=== PATIENT | male | born 1970 | race Hispanic/Latino ===

== ENCOUNTER 2020-10-05 01:07 | Emergency (ER) | payer SELFPAY ==
[2020-10-05] MEDS ORDERED: ACETAMINOPHEN 325 MG TABLET ONE (01:56)
--- NOTE | 2020-10-05 02:13 | EDPHYS ---
Physician Documentation [facility] Name: Chandana Casillas Age: 49 yrs Sex: Male : 1970 Arrival Date: 10/05/2020 Time: 01:14 Bed 18 Private MD: ED Physician Guanakito Blair HPI: 10/05 02:14 This 49 yrs old Male presents to ER via Ambulatory with complaints of ps1 Breathing Difficulty. 02:14 patient is presenting with symptoms typical for COVID 19. ESTRADA, cough, myalgias, ps1 shortness of breath. Onset was 5 days ago. No known COVID exposure but prevalent throughout the community. No hypoxia on examination. . Historical: - Allergies: :34 No Known Allergies; ea - Home Meds: :34 None [Active]; ea - PMHx: :34 None; ea - PSHx: :34 cyst removal from chest; ea - Immunization history:: Adult Immunizations up to date. - Social history:: Smoking status: Patient denies any tobacco usage or history of. ROS: 02:14 Eyes: Negative for injury, pain, redness, and discharge, Cardiovascular: Negative for ps1 chest pain, palpitations, and edema, Abdomen/GI: Negative for abdominal pain, nausea, vomiting, diarrhea, and constipation, MS/Extremity: Negative for injury and deformity, Skin: Negative for injury, rash, and discoloration, Neuro: Negative for headache, weakness, numbness, tingling, and seizure. 02:14 Constitutional: Positive for body aches, chills, fatigue, fever, malaise, poor PO intake. 02:14 Cardiovascular: 02:14 Respiratory: Positive for cough, shortness of breath. Exam: 02:14 Constitutional: This is a well developed, well nourished patient who is awake, alert, ps1 and in no acute distress. Head/Face: Normocephalic, atraumatic. Chest/axilla: Normal chest wall appearance and motion. Nontender with no deformity. No lesions are appreciated. Cardiovascular: Regular rate and rhythm. No gallops, murmurs, or rubs. Normal PMI, no JVD. No pulse deficits. Respiratory: Lungs have equal breath sounds bilaterally, clear to auscultation and percussion. No rales, rhonchi or wheezes noted. No increased work of breathing, no retractions or nasal flaring. Abdomen/GI: Soft, non-tender, with normal bowel sounds. No distension or tympany. No guarding or rebound. No evidence of tenderness throughout. Skin: Warm, dry with normal turgor. Normal color with no rashes, no lesions, and no evidence of cellulitis. MS/ Extremity: Pulses equal, no cyanosis. Neurovascular intact. Full, normal range of motion. Neuro: Awake and alert, GCS 15, oriented to person, place, time, and situation. Cranial nerves II-XII grossly intact. Sensory grossly intact. Vital Signs: 01:29 BP 124 / 88; Pulse 123; Resp 20; Temp 101.6; Pulse Ox 99% on R/A; Weight 78.47 kg; ea Height 5 ft. 7 in. (170.18 cm); 02:00 BP 132 / 89; Pulse 105; Resp 18; Pulse Ox 96% ; sf 02:19 Temp 101.8(O); sf 02:30 BP 123 / 79; Pulse 98; Resp 18; Pulse Ox 96% ; sf 01:29 Body Mass Index 27.10 (78.47 kg, 170.18 cm) ea MDM: 02:12 Patient medically screened. ps1 02:16 Data reviewed: vital signs, nurses notes. Counseling: I had a detailed discussion with ps1 the patient and/or guardian regarding: the historical points, exam findings, and any diagnostic results supporting the discharge/admit diagnosis, to return to the emergency department if symptoms worsen or persist or if there are any questions or concerns that arise at home. Administered Medications: 01:41 Drug: Tylenol 650 mg Route: PO; sf 02:20 Follow up: Response: No adverse reaction; Temperature is increased sf 02:26 Drug: Motrin 800 mg Route: PO; sf 02:38 Follow up: Response: Medication administered at discharge. sf Disposition: 10/05/20 02:12 Discharged to Home. Impression: Acute upper respiratory infection, unspecified. - Condition is Stable. - Discharge Instructions: Upper Respiratory Infection, Adult, COVID-19. - Prescriptions for Albuterol Sulfate 90 mcg/actuation - inhale 1-2 puff by INHALATION route every 4-6 hours; 1 Inhaler. - Medication Reconciliation Form, Thank You Letter, Antibiotic Education, Prescription Opioid Use form. - Work release form (02/27/21 03:36). ea - Follow up: Emergency Department; When: As needed; Reason: Trouble breathing, Worsening of condition. - Problem is new. - Symptoms are unchanged. Signatures: Dispatcher [employer] EDHI Lea Franco RN RN Guanakito Kerr MD MD ps1 Ti Mock RN RN sf Corrections: (The following items were deleted from the chart) 02:22 02:03 CORONAVIRUS ordered. [facility] 02:39 02:12 10/05/2020 02:12 Discharged to Home. Impression: Acute upper respiratory sf infection, unspecified. Condition is Stable. Forms are Medication Reconciliation Form, Thank You Letter, Antibiotic Education, Prescription Opioid Use. Follow up: Emergency Department; When: As needed; Reason: Trouble breathing, Worsening of condition. Problem is new. Symptoms are unchanged. ps1
--- NOTE | 2020-10-05 02:13 | ER ---
Nurse's Notes [facility] Name: Chandana Casillas Age: 49 yrs Sex: Male : 1970 Arrival Date: 10/05/2020 Time: 01:14 Bed 18 Private MD: Diagnosis: Acute upper respiratory infection, unspecified Presentation: 10/05 01:29 Chief complaint: Patient states: Reports he started having fever, cough, body aches ea since last Wednesday, reported tonight he was having a difficult time sleeping and his fever did not go away. Coronavirus screen: At this time, the client does not indicate any symptoms associated with coronavirus-19. Ebola Screen: No symptoms or risks identified at this time. Initial Sepsis Screen: Does the patient meet any 2 criteria? HR > 90 bpm. Does the patient have a suspected source of infection? No. Patient's initial sepsis screen is negative. Risk Assessment: Do you want to hurt yourself or someone else? Patient reports no desire to harm self or others. Onset of symptoms was October 05, 2020. :29 Method Of Arrival: Ambulatory ea :29 Acuity: ARACELIS 3 ea Triage Assessment: :34 General: Appears in no apparent distress. Behavior is calm, cooperative, appropriate ea for age. Pain: Complains of pain in body aches. Respiratory: Reports cough that is Onset: The symptoms/episode began/occurred one week ago, the patient reports symptoms have resolved. Historical: - Allergies: 01:34 No Known Allergies; ea - Home Meds: 01:34 None [Active]; ea - PMHx: :34 None; ea - PSHx: :34 cyst removal from chest; ea - Immunization history:: Adult Immunizations up to date. - Social history:: Smoking status: Patient denies any tobacco usage or history of. Screenin:33 Abuse screen: Denies threats or abuse. Nutritional screening: No deficits noted. ea Tuberculosis screening: No symptoms or risk factors identified. Fall Risk None identified. Assessment: :34 Reassessment: See triage assessment. ea 01:45 General: Appears in no apparent distress. comfortable, Behavior is calm, cooperative, sf Reports feeling ill for 2-3 days, also having body aches. Pain: Denies pain. Neuro: No deficits noted. Level of Consciousness is awake, alert, Oriented to person, place, time, situation, Appropriate for age. Cardiovascular: Denies chest pain, shortness of breath, Patient's skin is warm and dry. Rhythm is sinus tachycardia. Respiratory: Reports cough that is Airway is patent Respiratory effort is even, unlabored, Respiratory pattern is regular, symmetrical, Breath sounds are clear bilaterally. GI: No signs and/or symptoms were reported involving the gastrointestinal system. : No signs and/or symptoms were reported regarding the genitourinary system. Derm: Skin temperature is hot. 03:20 Reassessment: notified pt COVID result, pt informed of result by primary sg nurse and instructed on quarantine guidelines per the CDC. Vital Signs: 01:29 BP 124 / 88; Pulse 123; Resp 20; Temp 101.6; Pulse Ox 99% on R/A; Weight 78.47 kg; ea Height 5 ft. 7 in. (170.18 cm); 02:00 BP 132 / 89; Pulse 105; Resp 18; Pulse Ox 96% ; sf 02:19 Temp 101.8(O); sf 02:30 BP 123 / 79; Pulse 98; Resp 18; Pulse Ox 96% ; sf 01:29 Body Mass Index 27.10 (78.47 kg, 170.18 cm) ea ED Course: 01:14 Patient arrived in ED. cl3 01:16 Guanakito Blair MD is Attending Physician. ps1 01:32 Triage completed. ea 01:33 Patient has correct armband on for positive identification. Bed in low position. Call ea light in reach. Side rails up X2. 01:34 Arm band placed on right wrist. Patient placed in an exam room, on a stretcher, on ea pulse oximetry. 01:35 Ti Mock RN is Primary Nurse. sf 01:42 Pulse ox on. NIBP on. Door closed. Noise minimized. Visitors limited. sf 02:32 No provider procedures requiring assistance completed. Patient did not have IV access sf during this emergency room visit. Administered Medications: 01:41 Drug: Tylenol 650 mg Route: PO; sf 02:20 Follow up: Response: No adverse reaction; Temperature is increased sf 02:26 Drug: Motrin 800 mg Route: PO; sf 02:38 Follow up: Response: Medication administered at discharge. sf Outcome: 02:12 Discharge ordered by . ps1 02:37 Discharged to home ambulatory. sf 02:37 Condition: stable 02:37 Discharge instructions given to patient, Instructed on discharge instructions, follow up and referral plans. medication usage, Demonstrated understanding of instructions, follow-up care, medications, Prescriptions given X 1. 02:39 Patient left the ED. sf Signatures: Ti Ladd, RN RN sg Lea Franco RN RN ea Singer, Phillip, MD MD ps1 Attila, Kavin cl3 Ti Mock RN RN sf Corrections: (The following items were deleted from the chart) 02:32 01:45 General: Appears in no apparent distress. comfortable, Behavior is calm, sf cooperative, Reports feeling ill for sf 02:32 01:45 Pain: Denies pain. sf sf
[2020-10-05] MEDS ORDERED: IBUPROFEN 400 MG TAB ONE (02:41)
[2020-10-05 04:26] VITALS: O2SAT 96
[2020-10-05 04:27] VITALS: TEMP 101.8
[2020-10-05 04:28] VITALS: BP 123/79
== END 2020-10-05 02:39 | disposition home or self-care (01) ==
LOC: ER 01:07
DX: U07.1 COVID-19 (principal); J06.9 Acute upper respiratory infection, unspecified
CPT/HCPCS: 99284; U0003